=== PATIENT | male | born 1940 | race Caucasian/White ===

== ENCOUNTER → 2016-09-20 | Outpatient (CLI) | payer OTHER ==
[~2016-09-20] MED LIST: IOPAMIDOL (ISOVUE-300) 100 ML BTL ONE
== END ==
LOC: FIMAGING 13:44
PROVIDERS: ATTEND Internal Medicine Gastroenterology
DX: R10.31 Right lower quadrant pain (principal); N40.0 Benign prostatic hyperplasia without lower urinary tract symptoms; K57.30 Diverticulosis of large intestine without perforation or abscess without bleeding
CPT/HCPCS: 74177; Q9967

== ENCOUNTER 2017-07-14 12:31 | Inpatient (IN) | payer OTHER ==
[2017-07-14] MEDS ORDERED: VANCOMYCIN HCL/NORMAL SALINE 250 ML IV ONE (12:59)
[2017-07-14] MEDS ORDERED: NS 1,000 ML IV ONE (12:59)
[2017-07-14] MEDS ORDERED: ONDANSETRON 4 MG/2 ML VIAL IVP ONE (12:59)
[2017-07-14] MEDS ORDERED: HYDROmorphONE/DILAUDID 2 MG/ML INJ IVP ONE (12:59)
--- NOTE | 2017-07-14 13:01 | EDPHY ---
H & P Time Seen by Provider: 07/14/17 12:44 HPI/ROS: CHIEF COMPLAINT: Right elbow pain HISTORY OF PRESENT ILLNESS: Started having symptoms 10 days ago when he was [place]. He was seen in [place] on the 09 of July and had an x-ray was prescribed naproxen. On July 11 in a motel room it started draining, and he was seen yesterday at an urgent care in [place] and had needle aspiration was started on oral Keflex. Presents today with severe right elbow pain associated with redness and swelling, does not radiate, worse with palpation. Last ate an energy bar at 12:45 p.m. Today. REVIEW OF SYSTEMS: Eye: no change in vision ENT: no sore throat Cardiac: no chest pain or syncope Pulmonary: no cough or SOB Abdomen: no vomiting, diarrhea, abdominal pain Musculoskeletal: HPI Skin: HPI Neuro: no headache Constitutional: no fever : Chronic frequent urination from BPH, unchanged A comprehensive 10 point review of systems is otherwise negative aside from elements mentioned in the history of present illness. PAST MEDICAL HISTORY: BPH, polymyalgia rheumatica, left knee surgery, hemicolectomy for perforation, back surgery Social history: General Appearance: Alert and conversant, cooperative. Eyes: No scleral icterus. ENT, Mouth: Normal mucous membranes. Respiratory: Normal respiratory effort, breath sounds equal, lungs are clear to auscultation. Cardiovascular: Regular rate and rhythm. Gastrointestinal: Abdomen is soft and non tender. Neurological: Alert, face symmetric, normal motor and sensory in extremities. Skin: Erythema and warmth and fluctuance on the right elbow but no lymphangitis. Musculoskeletal: Swelling at the right elbow but normal motor sensory and vascular in the right hand. He can flex and extend the joint. Psychiatric: Not agitated. Emergency Department course/MDM: 1300: [place] 1302. Admission for IV antibiotics, orthopedic consultation for drainage. Vancomycin 1 g IV. Does not have SIRS criteria on arrival. Seen by Dr. Bal mcrae in the ED. Culture sent. Smoking Status: Former smoker Constitutional: Initial Vital Signs Temperature (C) 36.8 C 07/14/17 12:38 Heart Rate 80 07/14/17 12:38 Respiratory Rate 18 07/14/17 12:38 Blood Pressure 144/75 H 07/14/17 12:38 O2 Sat (%) 93 07/14/17 12:38 O2 Delivery Mode Room Air Allergies/Adverse Reactions: CONTRAST DYE Allergy (Severe, Uncoded 07/14/17 12:36) [place] Home Medications: Medication Instructions Recorded Cephalexin [Keflex (*)] 500 mg PO QID 07/14/17 HYDROcodone/APAP 325 [[place] 1 tab PO Q6 PRN 07/14/17 10 (*)] Medical Decision Making Differential Diagnosis: Differential considered including but not limited to inflammatory bursitis, infectious olecranon bursitis, fasciitis, septic elbow joint. Consult/Admit Bed Type: [place] [address] - Data Points Laboratory Results: Laboratory Results 07/14/17 12:57 07/14/17 12:57 07/14/17 07/14/17 12:57 12:57 WBC 5.56 10^3/uL 10^3/uL (3.80-9.50) RBC 4.69 10^6/uL 10^6/uL (4.40-6.38) Hgb 13.9 g/dL g/dL (13.7-17.5) Hct 42.8 % % (40.0-51.0) MCV 91.3 fL fL (81.5-99.8) MCH 29.6 pg pg (27.9-34.1) MCHC 32.5 g/dL g/dL (32.4-36.7) RDW 12.9 % % (11.5-15.2) Plt Count 182 10^3/uL 10^3/uL (150-400) MPV 9.4 fL fL (8.7-11.7) Neut % (Auto) 71.3 % % (39.3-74.2) Lymph % (Auto) 17.4 % % (15.0-45.0) [place] % (Auto) 7.9 % % (4.5-13.0) Eos % (Auto) 2.5 % % (0.6-7.6) Baso % (Auto) 0.4 % % (0.3-1.7) Nucleat RBC Rel Count 0.0 % % (0.0-0.2) Absolute Neuts (auto) 3.96 10^3/uL 10^3/uL (1.70-6.50) Absolute Lymphs (auto) 0.97 10^3/uL L 10^3/uL (1.00-3.00) Absolute Monos (auto) 0.44 10^3/uL 10^3/uL (0.30-0.80) Absolute Eos (auto) 0.14 10^3/uL 10^3/uL (0.03-0.40) Absolute Basos (auto) 0.02 10^3/uL 10^3/uL (0.02-0.10) Absolute Nucleated RBC 0.00 10^3/uL 10^3/uL (0-0.01) Immature Gran % 0.5 % % (0.0-1.1) Immature Gran # 0.03 10^3/uL 10^3/uL (0.00-0.10) Sodium 141 mEq/L mEq/L (135-145) Potassium 4.6 mEq/L mEq/L (3.5-5.2) Chloride 107 mEq/L mEq/L (97-110) Carbon Dioxide 25 mEq/l mEq/l (22-31) Anion Gap 9 mEq/L mEq/L (8-16) BUN 24 mg/dL H mg/dL (7-23) Creatinine 0.8 mg/dL mg/dL (0.7-1.3) Estimated GFR > 60 Glucose 99 mg/dL mg/dL (70-100) Calcium 9.0 mg/dL mg/dL (8.5-10.4) Medications Given: Discontinued Medications Hydromorphone HCl (Dilaudid) 0.5 mg IVP EDNOW ONE Stop: 07/14/17 13:00 Last Admin: 07/14/17 13:33 Dose: 0.5 mg Sodium Chloride (Ns) 1,000 mls @ 0 mls/hr IV EDNOW ONE; Wide Open PRN Reason: Protocol Stop: 07/14/17 13:00 Last Admin: 07/14/17 13:34 Dose: 1,000 mls Vancomycin/Sodium Chloride (Vancomycin 1 Gm (Premix)) 250 mls @ 250 mls/hr IV EDNOW ONE PRN Reason: Protocol Stop: 07/14/17 13:58 Last Admin: 07/14/17 14:01 Dose: Not Given Vancomycin HCl 1 gm/ Sodium (Chloride) 250 mls @ 250 mls/hr IV ONCE ONE Stop: 07/14/17 14:29 Last Admin: 07/14/17 13:54 Dose: 250 mls Ondansetron HCl (Zofran) 4 mg IVP EDNOW ONE Stop: 07/14/17 13:00 Last Admin: 07/14/17 13:32 Dose: 4 mg Departure - Departure Disposition: [facility] Acute Clinical Impression: Olecranon bursitis of right elbow Condition: Good
[2017-07-14 13:10] LABS: PLATELET COUNT 182 10^3/uL (150-400)
[2017-07-14] MEDS ORDERED: VANCOMYCIN 1 GM in NS 250 ML IV ONE (13:30)
--- NOTE | 2017-07-14 14:34 | GCON ---
[f rep st] CONSULTATION EMERGENCY DEPARTMENT CONSULTATION DATE OF CONSULTATION: 07/14/2017 REASON FOR CONSULTATION: Right septic olecranon bursitis. INDICATION FOR SURGERY: The patient is a 77-year-old gentleman who was on a rafting trip in the [facility] for the last 12 days. During his trip, his elbow became red, hot, and swollen. It draine d on several occasions and his symptoms improved slightly when it drained. He has been to several [facility] urgent cares, one in [place], [place], and one locally in the [facility]. They attempted an aspi ration of this but were questionably successful. His elbow was red, hot, and swollen and particularl y painful. The emergency department staff is planning for admission to the hospitalist service for I V antibiotics. I was asked to see him for this orthopedic problem. The remaining portion of his medical history is reviewed and the patient's intake from the emergency department reports from Dr. Justin Hernandes. PHYSICAL EXAMINATION: Examination finds him to have a remarkably swollen, red, hot and irritated the olecranon bursa. I have outlined the erythematous margin with a black sharpie pen. After discussin g this with the patient that has pus under pressure in the olecranon bursa, I have anesthetized the s kin with 1% lidocaine at the tip of the olecranon at the most fluctuant area. I then aspirated with an 18-gauge needle approximately 1 cc of thick white pus. At this point, I used a #11 blade to make a 2 cm longitudinal incision in the full-thickness through the skin and into the olecranon bursa. No n foul smelling thick white pus was encountered and expressed. I tucked a corner of gauze into the w ound and then placed a very thick bulky dressing over this to catch drainage followed by a loose comp ressive wrap. PLAN: The patient will be admitted for IV antibiotics. His culture will be sent from the emergency department for aerobe and anaerobic growth potential and sensitivities. I will follow him as an inpa tient. /[id number]/MODL
[2017-07-14] MEDS ORDERED: ONDANSETRON 4 MG/2 ML VIAL IVP PRN (15:07)
[2017-07-14] MEDS ORDERED: ONDANSETRON DISINTEGRATING 4 MG TAB PO PRN (15:07)
[2017-07-14] MEDS ORDERED: OXYCODONE/APAP 5/325 TAB PO PRN (15:07)
--- NOTE | 2017-07-14 16:14 | GHP ---
[f rep st] HISTORY AND PHYSICAL DATE OF ADMISSION: 07/14/2017 CHIEF COMPLAINT: Right elbow pain. HISTORY OF PRESENT ILLNESS: A 77-year-old male with limited past medical history, who [place] he developed discomfort of the right elbow. Pain was progressive, so he jackelyn ght care in another part of [place] where they believed he potentially just had an inflamed bursa. Gave him inflammatories when the pain persisted, erythema began and swelling was noted. He sought ca re by another outpatient clinic doctor, who attempted synovial or bursal fluid removal, and after tho se needle injections, pain and erythema worsened. He sought care at his primary care, who sent him t o the emergency department for evaluation. In the emergency department, he denies any subjective fev ers, reports occasional chills. Denies any nausea or vomiting, denies any changes in his bowel habit s. Denies dysuria, hematuria, vision changes, dizziness, chest pain, shortness of breath or cough. PAST MEDICAL HISTORY: 1. History in the '70s of a perforated colon, status post partial colectomy. 2. BPH for which he takes saw [facility]. SOCIAL HISTORY: Previous smoker, quit 30 years ago. Previous alcohol consumer, quit 30 years ago. Smokes marijuana daily. Denies any illicit drugs. FAMILY HISTORY: Negative for prostate disease or heart disease. REVIEW OF SYSTEMS: A 10-point review of systems is negative, with the exception of that reported in the HPI. ADVANCED DIRECTIVES: Patient is full cor, full tube. His would be his medical decision maker. PHYSICAL EXAMINATION: VITAL SIGNS: Blood pressure 129/69, heart rate 67, respiratory rate 18, 95% o n room air 37.0. GENERAL: This is a healthy-appearing, elderly male in no acute distress. HEENT: Notable for moist mucous membranes. Eyes: Negative for any icterus. CARDIAC: Patient is regular r ate and rhythm. PULMONARY: Clear to auscultation bilaterally. GASTROINTESTINAL: Positive bowel so unds. ABDOMEN: Soft and nontender. MUSCULOSKELETAL: Patient's elbow is wrapped after surgical jm inage of his olecranon bursa. There is blood and serosanguineous drainage from the wound. There is no edema of the hand or wrist on the right. The rest of his extremities are normal. SKIN: Negative for any rashes. NEUROLOGIC: He is alert and oriented x3. PSYCHIATRIC: He is pleasant and coopera tive on interview and examination. DATA: White count is 5.5, hematocrit 42.8, platelets 182, creatinine 0.8. Telemetry, which I personally reviewed and interpreted, shows sinus rhythm. ASSESSMENT AND PLAN: This is a 77-year-old male presenting with painful right elbow. 1. Acute olecranon bursitis, presumed septic. The patient was drained by Orthopedic Surgery in the emergency department. Cultures have been sent. Will initiate intravenous vancomycin and await cultu re results. Orthopedic Surgery will follow. We will use as-needed pain medications. 2. History of partial colectomy. Reports some diarrhea and complications related to antibiotic use. Will monitor as we initiate vancomycin. 3. Benign prostatic hypertrophy. Patient uses saw palmetto. Will allow him to use his outpatient h erbal supplementation. 4. Prophylaxis. Will place sequential compression devices, as it is unclear if the patient will hav e a surgical plan tomorrow. DIET: Regular. DISPOSITION: I expect greater than 2 midnights, as we will need to await culture results, and until that time, patient is safest on IV antibiotics. I have discussed the case with the emergency room ph ysician. Patient will be admitted to the medical-surgical floor for care. /[id number]/MODL
--- NOTE | 2017-07-14 21:37 | SOAPPROG ---
SOAP Progress Note Assessment/Plan: Assessment:GPC in Left elbow olecranon bursa. On Vanco (agree). Plan:Continue IV abx. Olecranon bursa is adequately drained from procedure in ED. Will change dressing 07/15/17, and leave wound open to drain. 07/14/17 21:35 Objective: Vital Signs Temp Pulse Resp BP Pulse Ox 36.8 C 66 16 112/56 L 94 07/14/17 20:00 07/14/17 20:00 07/14/17 20:00 07/14/17 20:00 07/14/17 20:00 Microbiology 07/14/17 13:35 Gram Stain - Final Elbow - Swab 07/13/17 07/14/17 07/15/17 05:59 05:59 05:59 Intake Total 1790 Output Total 1550 Balance 240 Gram's stain = GPC from left elbow bursa aspirate. ICD10 Worksheet Patient Problems: Problems Problem Status Onset Olecranon bursitis of right elbow Acute
[2017-07-14] MEDS: PROSTATE SUPPORT PO SCH ×2 (22:12→22:18)
[2017-07-14] MEDS: [UNRECOGNIZED DRUG - OTHER] PO SCH (22:13)
[2017-07-14] MEDS: SAW PALMETTO EXTRACT PO SCH (22:13)
[2017-07-15] MEDS: VANCOMYCIN 1 GM in NS 250 ML IV SCH ×2 (02:08→15:05)
[2017-07-15 05:10] LABS: PLATELET COUNT 171 10^3/uL (150-400)
[2017-07-15] MEDS: ACETAMINOPHEN 325 MG TAB PO PRN ×3 (07:46→22:25)
[2017-07-15] MEDS: [UNRECOGNIZED DRUG - OTHER] PO SCH ×2 (07:47→21:27)
[2017-07-15] MEDS: PROSTATE SUPPORT PO SCH ×2 (07:49→21:25)
[2017-07-15] MEDS: SAW PALMETTO EXTRACT PO SCH ×2 (07:50→21:26)
--- NOTE | 2017-07-15 09:01 | PDMN ---
Medical Necessity Medical necessity: Pt meets IP criteria per MD; est los >2 mn for presumed septic olecranon bursitis; awaiting cxs; admit for further monitoring, Ortho consult, IV abx, pain management & therapies; hx partial colectomy, BPH; per H& P & order 07/14/17
--- NOTE | 2017-07-15 11:18 | SOAPPROG ---
SOAP Progress Note Assessment/Plan: Assessment:Improving Plan:Continue IV abx for at least 48hours. I changed dressing today. Once sensitivity known can switch to oral abx. I will see as outpatient in 45-7 days. I plan to leave wound open and cover with bulky dressing. 07/14/17 21:35 07/15/17 11:18 Subjective: Slept some. Objective: Vital Signs Temp Pulse Resp BP Pulse Ox 36.8 C 63 16 124/64 H 95 07/15/17 08:00 07/15/17 08:00 07/15/17 08:00 07/15/17 08:00 07/15/17 08:00 Microbiology 07/14/17 13:35 Gram Stain - Final Elbow - Swab Laboratory Results 07/15/17 04:47 07/15/17 04:47 07/14/17 07/15/17 07/16/17 05:59 05:59 05:59 Intake Total 1989 Output Total 2750 Balance -760 Erythema reduced to well within black line. Bloody drainage only. No foul smell ICD10 Worksheet Patient Problems: Problems Problem Status Onset Olecranon bursitis of right elbow Acute
--- NOTE | 2017-07-15 12:28 | ASMTCMCOM ---
CM Note CM Note Notes: Met with patient and regarding discharge plan of care. Patient will likely have some wound care needs, unsure what MD will order at this time. Patient has scheduled a follow-up appointment with Dr. Selby next Friday. Patient may need some RN follow-up upon discharge for wound care (cleared by therapy). Anticipate patient will likely be able to discharge home independently unless wound needs are identified. CM will follow-up on Friday. Date Signed: 07/15/2017 12:28 PM Electronically Signed By:Mary Carmen Taylor RN
--- NOTE | 2017-07-15 12:51 | HOSPPROG ---
Hospitalist Progress Note Assessment/Plan: # acute septic olecranon bursitis 2/2 Staph aureus- confirmed on culture- WBC 5 MRSA aspirated/drained by Dr. Selby in the emergency department- Mobility improved overnight Oxygen saturations 90% on room air - follow cultures for sensitivities - continue IV vancomycin overnight - orthopedic surgery following # BPH- patient taking on saw palmetto # reported cardiac conduction abnormality-last EKG( personally reviewed and interpreted) shows right bundle-branch block - vital signs stable no need for further intervention # prophylaxis- ambulating # diet regular # disposition-greater than 2 midnights as the patient requires ongoing IV antibiotics and culture monitoring I have discussed the case with Dr. Selby from Orthopedic surgery-wound is improving continue IV vancomycin Subjective: Feeling well Objective: Vital Signs Temp Pulse Resp BP Pulse Ox 36.7 C 72 16 130/74 H 93 07/15/17 12:00 07/15/17 12:00 07/15/17 12:00 07/15/17 12:00 07/15/17 12:00 Microbiology 07/14/17 13:35 Gram Stain - Final Elbow - Swab Laboratory Results 07/15/17 04:47 07/15/17 04:47 07/14/17 07/15/17 07/16/17 05:59 05:59 05:59 Intake Total 1990 Output Total 2750 Balance -760 - Physical Exam Constitutional: appears nourished Eyes: anicteric sclera Ears, Nose, Mouth, Throat: moist mucous membranes Cardiovascular: regular rate and rhythym Respiratory: no respiratory distress Gastrointestinal: normoactive bowel sounds Genitourinary: no bladder fullness Skin: warm Musculoskeletal: other (Elbow dressed no drainage), No asymmetric calves Neurologic: AAOx3 Psychiatric: interacting appropriately Lymph, Heme, Immunologic: no cervical LAD ICD10 Worksheet Patient Problems: Problems Problem Status Onset Olecranon bursitis of right elbow Acute
[2017-07-15] MEDS: ceFAZolin 2 GM/SWFI 2 GM/20 ML SYR IVP SCH (21:29)
[2017-07-16] MEDS: ceFAZolin 2 GM/SWFI 2 GM/20 ML SYR IVP SCH ×3 (05:41→21:58)
[2017-07-16] MEDS: [UNRECOGNIZED DRUG - OTHER] PO SCH ×2 (08:18→22:01)
--- NOTE | 2017-07-16 08:18 | SOAPPROG ---
SOAP Progress Note Assessment/Plan: Assessment: s/p right elbow I/D: pain well controlled. # acute septic olecranon bursitis 2/2 Staph aureus preliminary results- confirmed on culture- WBC 5 MRSA aspirated/drained by Dr. Selby in the emergency department- Mobility improved. - follow cultures for sensitivities - continue IV vancomycin x 48hrs and then per hospitalists can transition to outpatient medications per their request. # BPH- patient taking on saw palmetto # reported cardiac conduction abnormality-last EKG( personally reviewed and interpreted) shows right bundle-branch block - vital signs stable no need for further intervention # DVT prophylaxis- ambulating. IS. SCDs. # Right elbow: NWB to affected area. Maintain dry dressing. Notify with abnormal bleeding/oozing/discharge, change in heat/color around wound site. # diet regular # disposition-greater than 2 midnights as the patient requires ongoing IV antibiotics and culture monitoring. Ortho will continue to monitor. Patient discussed with Dr. Selby. 07/16/17 08:24 Subjective: Alert and oriented, able to respond appropriately to questions. Denies numbness/ tingling, change in heat/color of extremity or of wound site, cough, congestion , chest pain, SOB, dyspnea, claudication, abnormal bleeding/oozing/discharge. Has been ambulating. Passed flatus. No BM. Objective: Vital Signs Temp Pulse Resp BP Pulse Ox 36.6 C 74 16 138/70 H 92 07/16/17 07:47 07/16/17 07:47 07/16/17 07:47 07/16/17 07:47 07/16/17 07:47 Microbiology 07/14/17 13:35 Gram Stain - Final Elbow - Swab Laboratory Results 07/15/17 04:47 07/15/17 04:47 07/15/17 07/16/17 07/17/17 05:59 05:59 05:59 Intake Total 1989 500 Output Total 2750 1200 125 Balance -760 -700 -125 A/o. Able to respond appropriately to questions. NAD. Non-labored breathing. No diaphoresis. M/S: Right elbow with no abnormal bleeding/oozing/discharge. No change in heat/ color of extremity or of around wound site upon dressing take down. Passive ROM in b/l great toe in all planes produced no reproducible pain in lower compartments. DNVI b/l with gross sensation intact and no focal deficits. Brisk cap refill b/l in upper extremities. AROM: 0-90, limited by pain and swelling. Negative b/l [place]. Calves soft/supple and NTTP b/l. ICD10 Worksheet Patient Problems: Problems Problem Status Onset Olecranon bursitis of right elbow Acute
[2017-07-16] MEDS: PROSTATE SUPPORT PO SCH ×2 (08:20→21:58)
[2017-07-16] MEDS: SAW PALMETTO EXTRACT PO SCH ×2 (08:21→22:00)
[2017-07-16] MEDS: ACETAMINOPHEN 325 MG TAB PO PRN ×3 (08:26→22:15)
[2017-07-16] MEDS ORDERED: MAGNESIUM HYDROXIDE 30 ML UDCUP PO PRN (08:27)
[2017-07-16] MEDS ORDERED: BISACODYL 10 MG SUPP PR PRN (08:27)
[2017-07-16] MEDS ORDERED: POLYETHYLENE GLYCOL 3350 17 GM PKT PO PRN (08:27)
[2017-07-16] MEDS ORDERED: LACTULOSE 20 GM/30 ML UDCUP PO PRN (08:27)
--- NOTE | 2017-07-16 10:08 | HOSPPROG ---
Hospitalist Progress Note Assessment/Plan: # acute septic olecranon bursitis 2/2 MSSA - transitioned from Vanco to Ancef, Mobility improved, wbc nl. Afebrile. - cont IV Ancef - will with ID regarding ongoing IV abtx vs transition to po - orthopedic surgery following # BPH- patient taking on saw palmetto # reported cardiac conduction abnormality-last EKG( personally reviewed and interpreted) shows right bundle-branch block - vital signs stable no need for further intervention # prophylaxis- ambulating # diet regular # disposition-cont inpt, poss d/c today or tomorrow Subjective: Pt feels well. ROM elbow much improved. No pain. No fevers. Ambulating, eating well. Objective: Vital Signs Temp Pulse Resp BP Pulse Ox 36.6 C 74 16 138/70 H 92 07/16/17 07:47 07/16/17 07:47 07/16/17 07:47 07/16/17 07:47 07/16/17 07:47 Microbiology 07/14/17 13:35 Gram Stain - Final Elbow - Swab Laboratory Results 07/15/17 04:47 07/15/17 04:47 07/15/17 07/16/17 07/17/17 05:59 05:59 05:59 Intake Total 1989 500 Output Total 2750 1200 125 Balance -760 -700 -125 - Physical Exam Constitutional: no apparent distress Eyes: PERRL Ears, Nose, Mouth, Throat: moist mucous membranes Cardiovascular: regular rate and rhythym Respiratory: no respiratory distress, no rales or rhonchi Skin: warm, other (Right elbow with decreased erythema and edema, no significant drainage from I&D wound, full ROM) Neurologic: AAOx3 Psychiatric: interacting appropriately ICD10 Worksheet Patient Problems: Problems Problem Status Onset Olecranon bursitis of right elbow Acute
[2017-07-16] MEDS: SENNOSIDES/DOCUSATE SODIUM TAB PO SCH ×2 (10:37→21:57)
[2017-07-17] MEDS: ceFAZolin 2 GM/SWFI 2 GM/20 ML SYR IVP SCH (05:40)
[2017-07-17 07:54] VITALS: BP 129/78
[2017-07-17] MEDS: [UNRECOGNIZED DRUG - OTHER] PO SCH (09:11)
[2017-07-17] MEDS: SAW PALMETTO EXTRACT PO SCH (09:12)
[2017-07-17] MEDS: PROSTATE SUPPORT PO SCH (09:12)
[2017-07-17] MEDS: SENNOSIDES/DOCUSATE SODIUM TAB PO SCH (09:22)
--- NOTE | 2017-07-17 09:37 | ASMTLACE ---
LACE Length of stay for Answers: 2 days current admission Acuity / Level of Answers: Yes Care: Did the patient have an inpatient admission? Comorbidities - select Answers: Other Notes: BPH all that apply # of Emergency department Answers: 1-2 visits in the last 6 months Score: 7 Date Signed: 07/17/2017 09:36 AM Electronically Signed By:Alma Delia Cates RN
--- NOTE | 2017-07-17 09:40 | ASMTCMCOM ---
CM Note CM Note Notes: Chart reviewed. Patient has been medically cleared for discharge to home on oral antibiotics. Patient is independent and will f/u as outpatient. CM available should other needs arise. Disposition home independent. Date Signed: 07/17/2017 09:39 AM Electronically Signed By:Alma Delia Cates RN
[2017-07-17] MEDS: ACETAMINOPHEN 325 MG TAB PO PRN (10:43)
--- NOTE | 2017-07-17 13:36 | GDS ---
[f rep st] DISCHARGE SUMMARY DISCHARGE DIAGNOSES: 1. Septic olecranon bursitis, status post incision and drainage secondary to methicillin-sensitive S taphylococcus aureus. 2. Benign prostatic hypertrophy. 3. Chronic right bundle branch block. CONSULTANTS: Dr. Stuart Selby, orthopedic surgery. HISTORY: For details, please see the history and physical dated July 14, 2017. In brief, the patie caroline is a 77-year-old male with a history of benign prostatic hypertrophy, who presented to the emergen cy department with right elbow pain, which he developed while on a river trip. He was admitted to [facility] for further management for a presumed septic joint. HOSPITAL COURSE: The patient was admitted to the medical-surgical unit. Orthopedic Surgery was cons ulted, and he underwent incision and drainage. Culture grew methicillin-sensitive Staph aureus. He was initially treated with IV vancomycin, though this was transitioned to IV cefazolin. Clinically, he showed marked improvement. He remained afebrile. His white blood cell count remained normal. I discussed the case with Infectious Disease, and they recommend 3 weeks of antibiotic therapy. His MS SA was sensitive to tetracycline, and ID recommended p.o. doxycycline for ongoing treatment. DISPOSITION: The patient was discharged home in stable condition. FOLLOWUP: 1. Dr. Stuart Selby, orthopedic surgery. 2. Primary care. DISCHARGE MEDICATIONS: Please see [email or web address] for the complete updated medication list. New medication s on discharge include: 1. Tylenol 650 mg p.o. q.4 hours p.r.n. 2. Doxycycline 100 mg p.o. b.i.d., #36, no refills, to complete 3 weeks of antibiotic therapy in [facility]. He will continue all other outpatient medications as previously prescribed. /[id number]/MODL
== END 2017-07-17 11:19 | disposition home or self-care (01) | DRG 558 ==
LOC: F3N 14:24
PROVIDERS: ADMIT Internal Medicine; ATTEND Internal Medicine
DX: M71.121 Other infective bursitis, right elbow (principal); B95.61 Methicillin susceptible Staphylococcus aureus infection as the cause of diseases classified elsewhere; N40.0 Benign prostatic hyperplasia without lower urinary tract symptoms; I45.10 Unspecified right bundle-branch block
CPT/HCPCS: 96365; 97161-GP; G8978-GP-CH; G8979-GP-CH; G8980-GP-CH; J0690; J1170; J2405; J3370

== ENCOUNTER 2017-07-19 11:08 | Inpatient (IN) | payer OTHER ==
[2017-07-19] MEDS ORDERED: ONDANSETRON 4 MG/2 ML VIAL IVP ONE (11:30)
[2017-07-19] MEDS ORDERED: NS 500 ML IV ONE (11:30)
--- NOTE | 2017-07-19 11:37 | CPEKG ---
Heart Rate: 73 RR Interval: 822 P-R Interval: 196 QRSD Interval: 132 QT Interval: 444 QTC Interval: 490 P Jefferson: 55 QRS Jefferson: -84 T Wave Jefferson: 25 EKG Severity - ABNORMAL ECG - EKG Impression: SINUS RHYTHM EKG Impression: PROBABLE LEFT ATRIAL ABNORMALITY EKG Impression: RIGHT BUNDLE BRANCH BLOCK Electronically Signed By: Valarie Boyce 19-Jul-2017 13:57:03
[2017-07-19 11:41] LABS: PLATELET COUNT 217 10^3/uL (150-400)
--- NOTE | 2017-07-19 11:49 | EDPHY ---
H & P Time Seen by Provider: 07/19/17 11:20 HPI/ROS: CHIEF COMPLAINT: Vomiting, confusion HISTORY OF PRESENT ILLNESS: 77-year-old male presents with vomiting and confusion. He was discharged from the hospital on 07/17/2017 for right olecranon bursitis. Culture revealed methicillin sensitive Staph aureus. He was discharged home on doxycycline. Yesterday he felt fine and was actually up on his roof fixing some shingles. Onset of nausea and multiple episodes of vomiting last night. Associated with loose stools. This morning, his noticed that he was very confused and tremulous. He complains of feeling confused, a moderate headache and being very tremulous. He continues to have nausea. REVIEW OF SYSTEMS: complete 10 point ROS negative except at noted in the HPI Past Medical/Surgical History: Olecranon bursitis Social History: Smoking Status: Former smoker Physical Exam: General Appearance: Alert, pleasant, speech is clear, answers some questions appropriately, but unable to answer other questions Eyes: Pupils equal and round, no conjunctival pallor or injection ENT, Mouth: Mucous membranes dry Neck: Normal inspection Respiratory: Lungs are clear to auscultation Cardiovascular: Regular rate and rhythm Gastrointestinal: Abdomen is soft and nontender Neurological: Alert, oriented x3, cranial nerves II through XII intact, motor 5 /5, sensory intact to light touch, tremulous, gait not assessed Skin: Warm and dry Extremities: Right elbow-open wound over the right olecranon bursa, erythema adjacent to the open wound, no tenderness Psychiatric: Mood and affect normal Constitutional: Initial Vital Signs Temperature (C) 37 C 07/19/17 11:14 Heart Rate 74 07/19/17 11:14 Respiratory Rate 19 07/19/17 11:14 Blood Pressure 140/75 H 07/19/17 11:14 O2 Sat (%) 96 07/19/17 11:14 O2 Delivery Mode Room Air Allergies/Adverse Reactions: CONTRAST DYE Allergy (Severe, Uncoded 07/19/17 11:10) [place] Home Medications: Medication Instructions Recorded Prostate Factors 15 tab PO BID 07/14/17 Prostate Support 2 tab PO BID 07/14/17 Saw [place] Extract 3 cap PO BID 07/14/17 Acetaminophen [Tylenol 325mg (*)] 650 mg PO Q4HRS PRN tab 07/17/17 Doxycycline Hyclate [Vibramycin 100 mg PO BID #36 cap 07/17/17 100 MG (*)] Medical Decision Making - Diagnostics EKG Interpretation: EKG interpreted by me reveals normal sinus rhythm, rate 73, right bundle branch block. Imaging Results: Imaging Impressions Head CT 07/19/17 11:51 Impression: White matter changes likely related to microvascular ischemic change. If there is clinical concern for acute white matter infarction, then consider MRI for further evaluation. Results called to Dr. Boyce at 12:37 PM General information for patients regarding this examination can be found at [email or web address]. If you have questions or comments about this report, please contact me at (hospital) or [phone] (cell). ED Course/Re-evaluation: This patient presents with confusion and vomiting. Right olecranon bursitis appears to be healing well, without signs of infection. No evidence of sepsis; does not meet SIRS criteria. I-STAT reveals hyponatremia, with a sodium level of 124. Hyponatremia is most likely secondary to dehydration related to vomiting and diarrhea. IV normal saline 500 mL and Zofran 4 mg IV given. Urine sodium and urine osm ordered to rule out other etiology. The hospitalist service was consulted for admission. Differential Diagnosis: Differential diagnosis includes though is not limited to intrinsic renal disease , postrenal obstruction, medication effect, CVA. - Data Points Laboratory Results: Laboratory Results 07/19/17 11:32 07/19/17 11:32 07/19/17 07/19/17 07/19/17 11:42 11:35 11:32 WBC RBC Hgb POC Hgb 15.3 gm/dL gm/dL (13.7-17.5) Hct POC Hct 45 % % (40-51) MCV MCH MCHC RDW Plt Count MPV Neut % (Auto) Lymph % (Auto) [place] % (Auto) Eos % (Auto) Baso % (Auto) Nucleat RBC Rel Count Absolute Neuts (auto) Absolute Lymphs (auto) Absolute Monos (auto) Absolute Eos (auto) Absolute Basos (auto) Absolute Nucleated RBC Immature Gran % Immature Gran # VBG Lactic Acid 1.9 mmol/L mmol/L (0.7-2.1) POC Sodium 124 mEq/L L mEq/L (135-145) Sodium POC Potassium 4.0 mEq/L mEq/L (3.3-5.0) Potassium POC Chloride 91 mEq/L L mEq/L (97-110) Chloride Carbon Dioxide Anion Gap POC BUN 13 mg/dL mg/dL (7-23) BUN Creatinine POC Creatinine 0.6 mg/dL L mg/dL (0.7-1.3) Estimated GFR Glucose POC Glucose 167 mg/dL H mg/dL (70-100) Serum Osmolality 262 mosmo/kg L mosmo/kg (280-297) Calcium 07/19/17 07/19/17 11:32 11:32 WBC 12.06 10^3/uL H 10^3/uL (3.80-9.50) RBC 4.72 10^6/uL 10^6/uL (4.40-6.38) Hgb 14.0 g/dL g/dL (13.7-17.5) POC Hgb Hct 40.0 % % (40.0-51.0) POC Hct MCV 84.7 fL fL (81.5-99.8) MCH 29.7 pg pg (27.9-34.1) MCHC 35.0 g/dL g/dL (32.4-36.7) RDW 12.3 % % (11.5-15.2) Plt Count 217 10^3/uL 10^3/uL (150-400) MPV 9.2 fL fL (8.7-11.7) Neut % (Auto) 89.8 % H % (39.3-74.2) Lymph % (Auto) 6.1 % L % (15.0-45.0) [place] % (Auto) 2.7 % L % (4.5-13.0) Eos % (Auto) 0.5 % L % (0.6-7.6) Baso % (Auto) 0.2 % L % (0.3-1.7) Nucleat RBC Rel Count 0.0 % % (0.0-0.2) Absolute Neuts (auto) 10.85 10^3/uL H 10^3/uL (1.70-6.50) Absolute Lymphs (auto) 0.73 10^3/uL L 10^3/uL (1.00-3.00) Absolute Monos (auto) 0.32 10^3/uL 10^3/uL (0.30-0.80) Absolute Eos (auto) 0.06 10^3/uL 10^3/uL (0.03-0.40) Absolute Basos (auto) 0.02 10^3/uL 10^3/uL (0.02-0.10) Absolute Nucleated RBC 0.00 10^3/uL 10^3/uL (0-0.01) Immature Gran % 0.7 % % (0.0-1.1) Immature Gran # 0.08 10^3/uL 10^3/uL (0.00-0.10) VBG Lactic Acid POC Sodium Sodium 123 mEq/L L mEq/L (135-145) POC Potassium Potassium 4.3 mEq/L mEq/L (3.5-5.2) POC Chloride Chloride 91 mEq/L L mEq/L (97-110) Carbon Dioxide 20 mEq/l L mEq/l (22-31) Anion Gap 12 mEq/L mEq/L (8-16) POC BUN BUN 13 mg/dL mg/dL (7-23) Creatinine 0.6 mg/dL L mg/dL (0.7-1.3) POC Creatinine Estimated GFR > 60 Glucose 151 mg/dL H mg/dL (70-100) POC Glucose Serum Osmolality Calcium 8.3 mg/dL L mg/dL (8.5-10.4) Medications Given: Discontinued Medications Sodium Chloride (Ns) 500 mls @ 0 mls/hr IV EDNOW ONE; Wide Open PRN Reason: Protocol Stop: 07/19/17 11:31 Last Admin: 07/19/17 11:48 Dose: 500 mls Ondansetron HCl (Zofran) 4 mg IVP EDNOW ONE Stop: 07/19/17 11:31 Last Admin: 07/19/17 11:47 Dose: 4 mg Point of Care Test Results: 07/19/17 11:35 POC Sodium 124 L POC Potassium 4.0 POC Chloride 91 L POC BUN 13 POC Creatinine 0.6 L POC Glucose 167 H Departure - Departure Disposition: [facility] Inpatient Acute Clinical Impression: Acute hyponatremia Condition: Fair
[2017-07-19] MEDS ORDERED: ACETAMINOPHEN 325 MG TAB PO PRN (14:24)
[2017-07-19] MEDS ORDERED: ONDANSETRON 4 MG/2 ML VIAL IVP PRN (14:24)
--- NOTE | 2017-07-19 15:05 | GHP ---
[f rep st] HISTORY AND PHYSICAL DATE OF ADMISSION: 07/19/2017 HISTORY OF PRESENT ILLNESS: The patient is a pleasant 77-year-old gentleman with history of BPH and recent admission for septic olecranon bursitis that grew out pansensitive staph. He was discharged home on the with a doxycycline prescription. He did well yesterday, but otherwise complaining o f some firm stool. Last night, he was having a difficult time moving his bowels, and he drank a grea t deal of water. His went to bed, and she estimates that he stayed up all night. It is not josue ar exactly how much water he drank. The patient is too confused today to let me know. This morning, he was confused and tremulous, and he sought care. He was found to have a sodium of 123. Notably, the patient had a sodium of 142 on the morning of the and, going back to 2008, he has had histor ically high normal sodium the whole time. He does not take an SSRI. He appears euvolemic on exam. He did have some diarrhea this morning which he describes as a great deal. As far as his knows, he has been urinating normally. He does not use alcohol. It is notable that, yesterday, he felt well enough to get up on his roof and fix some shingles. REVIEW OF SYSTEMS: Complete 10-point review of systems conducted, negative except as noted in the HP I. PAST MEDICAL HISTORY: 1. Septic olecranon bursitis due to pansensitive staph. 2. BPH. ALLERGIES: Contrast. HOME MEDICATIONS: Doxycycline, Tylenol, prostate factor, prostate support, and saw palmetto. I revi ewed the ingredients of the other medications, and they tend to be vitamins and minerals. He does no t take a diuretic. SOCIAL HISTORY: No tobacco. No alcohol in 30 years. Does use marijuana with some regularity. FAMILY HISTORY: Parents . PHYSICAL EXAMINATION: VITAL SIGNS: Temp 37, blood pressure 140/75, pulse 74, breathing 19 times a m inute, 96% on room air. GENERAL: Encephalopathic but otherwise no acute distress. HEENT: Sclerae anicteric. Oropharynx clear. Mucous membranes are moist. NECK: Supple without lymphadenopathy or JVD. LUNGS: Clear to auscultation bilaterally. HEART: S1, S2. ABDOMEN: Soft, nontender, nondist ended. LOWER EXTREMITIES: Without edema. Calves are nontender. SKIN: Without rash. NEUROLOGIC: Notable for patient with a slight tremor as well as encephalopathy. He is alert and able to follow a conversation, but he is unable to answer questions, such as how much water he drank. LABORATORY/IMAGING: Sodium is 123, potassium 4.3, chloride 91, bicarb 20, BUN 13, creatinine 0.6, gl ucose 151. Serum osmoles are 262. Notably, his baseline creatinine is about 0.8, and his BUN is abo ut 19 per his prior labs. EKG interpreted by me shows sinus at 73 with right bundle branch block. Compared with an EKG of 2014 , the right bundle branch block is not new. Noncontrast head CT shows white matter changes, likely secondary to microvascular ischemic change. I have discussed case with Dr. Armida Boyce in the emergency department. ASSESSMENT/PLAN: This is a pleasant 77-year-old gentleman with what appears to be acute hyponatremia and encephalopathy. 1. Encephalopathy, acute, secondary to hyponatremia. Noncontrast head CT has ruled out bleed. 2. Hyponatremia. I believe the patient has water intoxication, as best I can tell. He has signs of overhydration with a lower BUN and creatinine and hyponatremia and a diarrhea syndrome. He did rece nelly 500 cc of normal saline in the emergency department. I have written for stat chem 7 now, and we will follow it q.6 thereafter. I have also ordered urine osmoles. The primary differential at this point in time is syndrome of inappropriate antidiuretic hormone. If the sodium returns rising, that will be consistent with water intoxication. Depending on the rate of rise, he may require some hypot onic fluids to keep the rate at less than 12 mEq of rise in 24 hours. Should his sodium fall, this i s consistent with syndrome of inappropriate antidiuretic hormone in the setting of fluid administrati on. I have discussed this care plan with the nurse. It is worth noting this is acute hyponatremia. The rate and the risk of untoward outcomes from over-correction are lower than in the chronic state. 3. Olecranon bursitis. His elbow looks good. There is some erythema. I took down the dressing. T here is no purulent discharge. Will continue his doxycycline. 4. Prophylaxis. Low molecular heparin indicated. DISPOSITION: Inpatient status. Risk high. /[id number]/MODL
--- NOTE | 2017-07-19 15:33 | PDMN ---
Medical Necessity Medical necessity: C/M review: est. > 2 MN LOS for eval and TX of acute encephalopathy secondary to hyponatremia, acute hyponatremia, water intoxication , patient is high risk, requiring ongoing serial basic metabolic panel Q 6 hrs. monitoring, urine osmolality monitoring, close monitoring, comorbid recent hospitalization for septic olecranon bursitis that grew out pansensitive staph, history of BPH per H/P.
--- NOTE | 2017-07-19 16:51 | ASMTCMCOM ---
CM Note CM Note Notes: Pt presented to the Emergency Department with vomiting, confusion and diarrhea. Pt was discharged from the hospital on 07/17/17 with a right olecranon bursitis/staph infection. Pt to be admitted for further evaluation and treatment of hyponatremia. History includes BPH. Pt is and lives with his . Discharge needs remain unclear at this time CM will continue to follow. Current Discharge Plan: To be determined Date Signed: 07/19/2017 04:50 PM Electronically Signed By:Sendy Gibson RN
[2017-07-19] MEDS: ONDANSETRON DISINTEGRATING 4 MG TAB PO PRN (18:29)
[2017-07-19] MEDS: DOXYCYCLINE HYCLATE 100 MG CAP/TAB PO SCH (19:47)
[2017-07-19] MEDS: PROSTATE SUPPORT PO SCH (19:48)
[2017-07-19] MEDS: [UNRECOGNIZED DRUG - OTHER] PO SCH (19:49)
[2017-07-19] MEDS: SAW PALMETTO EXTRACT PO SCH (19:50)
[2017-07-19] MEDS ORDERED: SAW PALMETTO EXTRACT PO SCH (21:00)
[2017-07-19] MEDS ORDERED: [UNRECOGNIZED DRUG - OTHER] PO SCH (21:00)
[2017-07-19] MEDS ORDERED: PROSTATE SUPPORT PO SCH (21:00)
[2017-07-20] MEDS: PROSTATE SUPPORT PO SCH ×2 (09:25→22:00)
[2017-07-20] MEDS: DOXYCYCLINE HYCLATE 100 MG CAP/TAB PO SCH ×2 (09:25→22:00)
[2017-07-20] MEDS: [UNRECOGNIZED DRUG - OTHER] PO SCH ×2 (09:26→22:00)
[2017-07-20] MEDS: SAW PALMETTO EXTRACT PO SCH ×2 (09:27→22:00)
[2017-07-20] MEDS: ENOXAPARIN 40 MG/0.4 ML SYR SC SCH (09:27)
[2017-07-20] MEDS: ACETAMINOPHEN 325 MG TAB PO PRN (10:29)
[2017-07-20] MEDS ORDERED: BISACODYL 10 MG SUPP PR PRN (12:09)
[2017-07-20] MEDS ORDERED: MAGNESIUM HYDROXIDE 30 ML UDCUP PO PRN (12:09)
[2017-07-20] MEDS ORDERED: LACTULOSE 20 GM/30 ML UDCUP PO PRN (12:09)
--- NOTE | 2017-07-20 12:13 | HOSPPROG ---
Hospitalist Progress Note Assessment/Plan: Patient is a 77-year-old male who was recently admitted for septic olecranon bursitis. He was discharged home on July 17. He overall did well. He was constipated and drank approximately 20 glasses of water. The patient's noted that her was very confused. He was brought to the emergency room and noted to have a sodium of 123. Today is my 1st encounter with the patient. Chart reviewed. Discussed his care with Dr. Kang who admitted the patient * SIADH, acute hyponatremia -Na levels improved -urine sodium is elevated -chest x-ray is stable -will continue to fluid restrict at 1500 mL a day -will add ensure nightly * acute encephalopathy -this is since resolved -secondary to the hyponatremia * constipation -bowel protocol added * olecranon bursitis -continue doxycycline *dvt prophylaxis: LMWH *Plan: will follow sodium levels again tomorrow, he is at high risk for falling. Subjective: Randal is feeling much better today, but has a mild headache. Objective: Vital Signs Temp Pulse Resp BP Pulse Ox 36.9 C 71 14 107/63 90 L 07/20/17 11:32 07/20/17 11:32 07/20/17 11:32 07/20/17 11:32 07/20/17 11:32 Laboratory Results 07/20/17 04:25 07/19/17 07/20/17 07/21/17 05:59 05:59 05:59 Intake Total 850 Output Total 380 300 Balance 470 -300 - Physical Exam Constitutional: no apparent distress, appears nourished, not in pain Eyes: PERRL Ears, Nose, Mouth, Throat: hearing normal Cardiovascular: regular rate and rhythym Respiratory: no respiratory distress Skin: warm Musculoskeletal: full muscle strength Neurologic: AAOx3 Psychiatric: interacting appropriately ICD10 Worksheet Patient Problems: Problems Problem Status Onset Acute hyponatremia Acute Olecranon bursitis of right elbow Acute
[2017-07-20] MEDS: POLYETHYLENE GLYCOL 3350 17 GM PKT PO SCH (12:48)
--- NOTE | 2017-07-20 14:48 | WOCRNPDOC ---
WOCRN Advanced Assessment Note - Skin Integrity Problem, Advanced Assess Right Elbow Dressing Type: Kerlix, Mepilex Dressing Description: Clean/Dry, Intact, Shadowed Exudate Amount: Minimal Exudate Color: Reddish/Yellow Exudate Characteristic(s): Serosanguinous Integumentary Issue Intervention: Dressing Changed Krista Wound Tissue: Erythema, Swollen Krista Wound Swelling: Mild Wound Bed Color: Slaughter Wound Bed Constitution: Red/Slaughter - Non Granular Tissue Wound Edges: Well Defined Site Measurement - Head-to-Toe Length X Width X Depth (cm): 1.8x0.9x0.3 Skin Integrity Problem Comment: Patient s/p I&D of this elbow on a recent admission. Patient reports that when he was home, he left it open to air so it could drain. Approx half of wound bed, 0.7cm is dried scab. Will implement measures to soften this scab and permit drainage from wound bed. Wound care will round again later this week.
--- NOTE | 2017-07-20 15:16 | ASMTCMCOM ---
CM Note CM Note Notes: CM met with patient and son, patient is asking about discharge date as he is scheduled to see Dr. Kip Sevilla tomorrow 07.21.17 for the elbow issue at 1:30pm. Patient states he has support at home from [facility] ([phone]). Patient does has not worked with any Home Care in the past. D/C Plan TBD, CM available for further CM needs. Current D/C plan: TBD. Date Signed: 07/20/2017 03:15 PM Electronically Signed By:Maribel Monterroso
[2017-07-20] MEDS: SENNOSIDES/DOCUSATE SODIUM TAB PO SCH (22:00)
[2017-07-21 07:39] VITALS: BP 97/52
[2017-07-21] MEDS: ACETAMINOPHEN 325 MG TAB PO PRN (08:31)
[2017-07-21] MEDS: DOXYCYCLINE HYCLATE 100 MG CAP/TAB PO SCH (08:31)
[2017-07-21] MEDS: ONDANSETRON DISINTEGRATING 4 MG TAB PO PRN (08:31)
[2017-07-21] MEDS: SENNOSIDES/DOCUSATE SODIUM TAB PO SCH (08:32)
[2017-07-21] MEDS: POLYETHYLENE GLYCOL 3350 17 GM PKT PO SCH (08:32)
[2017-07-21] MEDS: ENOXAPARIN 40 MG/0.4 ML SYR SC SCH (08:33)
--- NOTE | 2017-07-21 09:52 | ASMTCMCOM ---
CM Note CM Note Notes: CM spoke w/ Nalini TICKET TAKER FERRYBOAT and Nina RN regarding d/c POC. Pt will most likely d/c today. PT is recommending home without any needs. No other needs identified at this time. CM available for changes. Plan: Independent Date Signed: 07/21/2017 09:51 AM Electronically Signed By:ANDRES Liu
[2017-07-21] MEDS: PROSTATE SUPPORT PO SCH (09:53)
[2017-07-21] MEDS: [UNRECOGNIZED DRUG - OTHER] PO SCH (09:53)
[2017-07-21] MEDS: SAW PALMETTO EXTRACT PO SCH (09:54)
[2017-07-21] MEDS ORDERED: IBUPROFEN 200 MG TAB PO ONE (09:58)
--- NOTE | 2017-07-21 10:15 | HOSPPROG ---
Hospitalist Progress Note Assessment/Plan: Patient is a 77-year-old male who was recently admitted for septic olecranon bursitis. He was discharged home on July 17. He overall did well. He was constipated and drank approximately 20 glasses of water. The patient's noted that her was very confused. He was brought to the emergency room and noted to have a sodium of 123. * SIADH, acute hyponatremia -Na levels improved today -urine sodium is elevated -chest x-ray is stable -will lift fluid restriction to 2L today - ensure nightly * acute encephalopathy -this has resolved -secondary to the hyponatremia * constipation -no BM since this admission -Bowel protocol ordered, give Biscodyl today -may add Magnesium Citrate -KUB ordered * olecranon bursitis -continue doxycycline *headache -trial of ibuprofen, minimal relief with Tylenol *dvt prophylaxis: LMWH *Plan: Will follow KUB and response to medication for headache. Subjective: Pt c/o of headache and nausea overnight and this morning. He reports little pain relief from Tylenol. Objective: Vital Signs Temp Pulse Resp BP Pulse Ox 36.8 C 73 16 97/52 L 94 07/21/17 07:38 07/21/17 07:38 07/21/17 07:38 07/21/17 07:38 07/21/17 07:38 Laboratory Results 07/21/17 04:24 07/20/17 07/21/17 07/22/17 05:59 05:59 05:59 Intake Total 850 1718 Output Total 380 1900 Balance 470 -182 - Physical Exam Constitutional: no apparent distress Eyes: PERRL Ears, Nose, Mouth, Throat: hearing normal Cardiovascular: regular rate and rhythym Respiratory: clear to auscultation Gastrointestinal: normoactive bowel sounds, soft, non-tender abdomen Skin: warm, other (agata bandage in place) Musculoskeletal: full muscle strength Neurologic: AAOx3 Psychiatric: interacting appropriately, not encephalopathic ICD10 Worksheet Patient Problems: Problems Problem Status Onset Acute hyponatremia Acute Olecranon bursitis of right elbow Acute
--- NOTE | 2017-07-21 11:19 | PDIAF ---
- Diagnosis Diagnosis: hyponatremia, confusion, left elbow olecranon bursitis Code Status: Full Code - Medication Management Discharge Medications: Medications to Continue on Transfer Prostate Factors 15 tab PO BID 07/14/17 [Last Taken 07/18/17] Prostate Support 2 tab PO BID 07/14/17 [Last Taken 07/18/17] Saw [place] Extract 3 cap PO BID 07/14/17 [Last Taken 07/18/17] Acetaminophen [Tylenol 325mg (*)] 650 mg PO Q4HRS PRN tab 07/17/17 [Last Taken Unknown] Doxycycline Hyclate [Vibramycin 100 MG (*)] 100 mg PO BID #36 cap 07/17/17 [ Last Taken 07/18/17] Discharge Medications: Refer to the Discharge Home Medication list for PRN reason. - Orders Services needed: Home Care, Registered Nurse Home Care Face to Face: I certify that this patient was under my care and that I had the required [id number] encounter meeting the encounter requirements on the discharge day. My findings support the fact that the patient is homebound as defined in Home Care Face to Face Continued: CMS Chapter 7 Medicare Benefits Manual 30.1.1 , The condition of the patient is such that there exists a normal inability to leave home and consequently, leaving home would require a considerable and taxing effort. Diet Recommendation: no restrictions on diet Diet Texture: Regular Texture Diet Additional Instructions: Wound care Change dressings to right elbow daily and as needed 1. Clean with NS and gauze 2. Skin prep dominique wound 3. Silvasorb gel to wound bed 4. Cover with Mepilex or other non-bordered foam 5. Wrap with kerlix and tape to secure Beatrice Simpson RN, Wound Care Team Fluid restrict of 2,ooo ml/day get a TSH the end of this week and a repeat chemistry panel with your PCP the end of this week - Labs/Radiology BMP Date: 07/25/17 - Follow Up Care Current Providers and Referrals: Joyce Zuniga MD [Primary Care Provider] - As per Instructions
--- NOTE | 2017-07-21 11:32 | ASMTCMCOM ---
CM Note CM Note Notes: CM spoke w/ LUCIANA Gayle regarding d/c POC. Nalini is recommending HC, RN to check on the wounds. CM met w/ pt for dispo planning. Pt is not interested in having HC at this time. Pt reports that his will be able to help. Pt reports that he is seeing the surgeon this afternoon. CM informed pt that if he changes his mind he could reach out to either his PCP or the surgeon to order HC. CM available for changes. Plan: Independent Date Signed: 07/21/2017 11:31 AM Electronically Signed By:ANDRES Liu
--- NOTE | 2017-07-21 12:24 | GDS ---
[f rep st] DISCHARGE SUMMARY DISCHARGE DIAGNOSES: 1. Hyponatremia, secondary to syndrome of inappropriate antidiuretic hormone. 2. Acute encephalopathy. 3. Constipation. 4. Olecranon bursitis. 5. Headache. HISTORY OF PRESENT ILLNESS: Briefly, the patient is a 77-year-old male who was recently admitted for septic olecranon bursitis. He was discharged home on July 17. He overall did well. He was constipated and drank approximately 20 glasses of water. The patient's brought him to the emergency room because he was very confused. His sodium was noted to be 123. HOSPITAL COURSE: 1. SIADH, acute hyponatremia. His urine sodium is elevated. His chest x-ray is stable. Will have him follow up with his PCP and also get a TSH checked. 2. Acute encephalopathy, resolved. 3. Constipation, resolved. 4. Olecranon bursitis. Continue doxycycline. 5. Headache. He got good relief with ibuprofen. DISCHARGE CONDITION: Stable. Blood pressure is 102/64, heart rate 74, respiratory rate 14, O2 sats on room air 93%, temp is 36.8 Celsius. MEDICATIONS AT DISCHARGE: Please see the EMR. DISCHARGE INSTRUCTIONS: 1. He needs to get a chemistry panel checked at the end of this week. 2. To continue fluid restriction at 2 L a day. 3. To continue dressing changes as instructed by the wound care. Greater than 30 minutes discharging and coordinating patient's care. /[id number]/MODL MTDD
== END 2017-07-21 12:00 | disposition home or self-care (01) | DRG 643 ==
LOC: OBSVTOIN 12:20 → INTOOBSV 12:20 → F3E 13:23
PROVIDERS: ADMIT Internal Medicine; ATTEND Internal Medicine
DX: E22.2 Syndrome of inappropriate secretion of antidiuretic hormone (principal); G93.40 Encephalopathy, unspecified; K59.00 Constipation, unspecified; R51 Headache; M70.21 Olecranon bursitis, right elbow; B95.61 Methicillin susceptible Staphylococcus aureus infection as the cause of diseases classified elsewhere; N40.0 Benign prostatic hyperplasia without lower urinary tract symptoms; Z87.891 Personal history of nicotine dependence
CPT/HCPCS: 82947-QW; 96374; 97161-GP; G8978-GP-CH; G8979-GP-CH; G8980-GP-CH; J1650; J2405

== ENCOUNTER 2018-04-01 19:59 | Emergency (ER) | payer OTHER ==
[2018-04-01 20:06] VITALS: BP 159/76
[2018-04-01] MEDS ORDERED: TDAP ADULT 0.5 ML INJ (BOOSTRIX) IM ONE (20:20)
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
== END 2018-04-01 20:50 | disposition home or self-care (01) ==
PROC: 0HQGXZZ Repair Left Hand Skin, External Approach (ICD-10-PCS; principal; 2018-04-01)
DX: S61.211A Laceration without foreign body of left index finger without damage to nail, initial encounter (principal); Z23 Encounter for immunization; W26.0XXA Contact with knife, initial encounter; Y92.9 Unspecified place or not applicable; Y93.9 Activity, unspecified; Y99.9 Unspecified external cause status